=== PATIENT | female | born 1980 | race Caucasian/White ===

== ENCOUNTER 2021-12-18 22:40 | Inpatient (IN) | payer OTHER ==
[2021-12-18 22:49] VITALS: BMI 22.8
[2021-12-19] MEDS ORDERED: cloNIDine HCL 0.1 MG TABLET PO ONE ×2 (01:22→01:23)
[2021-12-19] MEDS ORDERED: methaDONE HCL 10 MG TABLET (FOR DETOX USE ONLY) PO ONE (01:26)
[2021-12-19] MEDS ORDERED: cloNIDine HCL 0.1 MG TABLET ONE ×2 (01:42→02:05)
[2021-12-19] MEDS ORDERED: methaDONE HCL 10 MG TABLET ONE ×2 (01:42→09:11)
[2021-12-19] MEDS ORDERED: VANCOMYCIN/WATER 2 GM/400 ML PREMIX BAG IVPB ONE (02:01)
[2021-12-19] MEDS ORDERED: VANCOMYCIN/WATER 1,250 MG/250 ML BAG IVPB ONE (02:17)
[2021-12-19] MEDS ORDERED: VANCOMYCIN/WATER 1250 MG 1,250 MG/250 ML BAG IVPB ONE (03:16)
[2021-12-19 05:41] LABS: BASO % 0.3 % (0-2.0); EOS % 0.2 % (0-4.5); HEMATOCRIT 25.3 % (32.4-45.2); HEMOGLOBIN 7.6 GM/dL (10.7-15.3); LYMPH % 7.6 % (8-40); MCHC 30.1 g/dl (32.0-36.0); MEAN CELL VOLUME 61.7 fl (80-96); MEAN PLT VOLUME 9.1 fl (7.5-11.1); MONO % 5.8 % (3.8-10.2); NEUT % 86.1 % (42.8-82.8); PLATELET COUNT 242 10^3/uL (134-434); RDW 18.4 % (11.6-15.6)
[2021-12-19 05:48] LABS: MCH 18.6 pg (25.7-33.7)
[2021-12-19 06:01] LABS: CHLORIDE 101 mmol/L (98-107); SODIUM 134 mmol/L (136-145)
[2021-12-19 06:04] LABS: ALBUMIN 2.7 g/dl (3.4-5.0); ANION GAP 5 MMOL/L (8-16); CALCIUM 8.2 mg/dL (8.5-10.1); CO2 29 mmol/L (21-32); GLUCOSE,RANDOM 127 mg/dL (74-106)
[2021-12-19 06:07] LABS: CREATININE 0.8 mg/dL (0.55-1.3); SGOT/AST 10 U/L (15-37); SGPT/ALT 10 U/L (13-61)
[2021-12-19 06:09] LABS: BILIRUBIN,TOTAL 0.6 mg/dL (0.2-1)
[2021-12-19 06:10] LABS: ALK PHOS 93 U/L (45-117)
[2021-12-19] MEDS ORDERED: LORazepam 2 MG/ML SDV VIAL IVPUSH PRN (07:41)
[2021-12-19] MEDS ORDERED: cloNIDine HCL 0.1 MG TABLET PO PRN (07:44)
[2021-12-19 07:54] LABS: ERYTHROCYTE SEDIMENTATION RATE 62 mm/hr (0-20)
[2021-12-19] MEDS ORDERED: SODIUM CHLORIDE 1,000 ML IV SCH (08:00)
[2021-12-19] MEDS ORDERED: THIAMINE HCL 100 MG TABLET (FP) ONE (09:11)
[2021-12-19] MEDS ORDERED: FOLIC ACID 1 MG TABLET (FP) ONE (09:11)
[2021-12-19] MEDS ORDERED: ENOXAPARIN NA (PORCINE) 40 MG/0.4 ML DISP.SYRIN SQ ONE (09:11)
[2021-12-19] MEDS: FOLIC ACID 1 MG TABLET (FP) PO SCH (09:22)
[2021-12-19] MEDS ORDERED: LORazepam 1 MG TABLET PO PRN (09:26)
[2021-12-19] MEDS ORDERED: THIAMINE HCL 100 MG TABLET (FP) PO SCH (10:00)
[2021-12-19] MEDS ORDERED: ENOXAPARIN NA (PORCINE) 40 MG/0.4 ML DISP.SYRIN SQ SCH (10:00)
[2021-12-19] MEDS ORDERED: PIPERACILLIN/TAZOB 3.375 GM 3.375 GM in DEXTROSE 5%-WATER - 50 ML IVPB SCH (10:45)
[2021-12-19] MEDS ORDERED: PIPERACILLIN/TAZOBACTAM 3.375 GM VIAL IVPB ONE (11:03)
[2021-12-19] MEDS ORDERED: DEXTROSE 5%-WATER - 50 ML IVPB ONE (11:04)
[2021-12-19] MEDS: LORazepam 1 MG TABLET PO SCH ×3 (12:13→23:00)
[2021-12-19 12:31] LABS: ANISOCYTOSIS 3+; OVALOCYTE 1+
[2021-12-19 13:08] LABS: PH,URINE 6.5 (5.0-8.0); URINE APPEARANCE CLEAR; URINE BILIRUBIN NEGATIVE (NEGATIVE); URINE COLOR YELLOW; URINE GLUCOSE (UA) NEGATIVE (NEGATIVE); URINE KETONE NEGATIVE (NEGATIVE); URINE LEUK ESTERASE NEGATIVE (NEGATIVE); URINE NITRITE NEGATIVE (NEGATIVE); URINE PROTEIN NEGATIVE (NEGATIVE)
[2021-12-19] MEDS: VANCOMYCIN/WATER FOR INJ (PEG) 1,000 MG/200 ML BAG IVPB SCH (16:39)
[2021-12-20] MEDS ORDERED: VANCOMYCIN 1 GM/200 ML PREMIX BAG IVPB ONE (02:00)
[2021-12-20] MEDS: VANCOMYCIN/WATER FOR INJ (PEG) 1,000 MG/200 ML BAG IVPB SCH ×2 (02:55→16:44)
[2021-12-20] MEDS: LORazepam 1 MG TABLET PO SCH ×4 (06:14→23:23)
[2021-12-20] MEDS ORDERED: THIAMINE HCL 200 MG/2 ML VIAL IVPB ONE (07:55)
[2021-12-20] MEDS ORDERED: VANCOMYCIN 1 GM in D5W (PRE-DOCKED) 1,000 MG/250 ML IVPB SCH (10:00)
[2021-12-20] MEDS ORDERED: PIPERACILLIN/TAZOB 3.375 GM 3.375 GM in DEXTROSE 5%-WATER - 50 ML IVPB SCH (10:00)
[2021-12-20] MEDS ORDERED: DEXTROSE 5%-WATER 100 ML IVPB ONE (10:34)
[2021-12-20] MEDS: FOLIC ACID 1 MG TABLET (FP) PO SCH (10:40)
[2021-12-20] MEDS: CEFTRIAXONE 2 GM in DEXTROSE 5%-WATER 2 GM/100 ML BAG IVPB SCH (10:40)
[2021-12-20] MEDS ORDERED: methaDONE HCL 10 MG TABLET ONE (10:41)
[2021-12-21] MEDS: VANCOMYCIN/WATER FOR INJ (PEG) 1,000 MG/200 ML BAG IVPB SCH ×2 (02:36→14:06)
[2021-12-21] MEDS: LORazepam 1 MG TABLET PO SCH ×3 (05:55→17:17)
[2021-12-21] MEDS ORDERED: DEXTROSE 5%-WATER 100 ML IVPB ONE (09:13)
[2021-12-21] MEDS: FOLIC ACID 1 MG TABLET (FP) PO SCH (09:31)
[2021-12-21] MEDS: CEFTRIAXONE 2 GM in DEXTROSE 5%-WATER 2 GM/100 ML BAG IVPB SCH (09:31)
[2021-12-21] MEDS ORDERED: THIAMINE HCL 100 MG TABLET (FP) PO SCH (10:00)
[2021-12-21] MEDS ORDERED: methaDONE HCL 10 MG TABLET PO ONE (10:00)
[2021-12-21 13:57] VITALS: BP 100/62; PULSE 88; TEMP 98.5
[2021-12-22] MEDS ORDERED: LORazepam 0.5 MG TABLET PO PRN
[2021-12-22] MEDS ORDERED: LORazepam 0.5 MG TABLET PO SCH (05:00)
[2021-12-23] MEDS ORDERED: LORazepam 0.5 MG TABLET PO ONE (05:00)
[2021-12-23] MEDS ORDERED: methaDONE HCL 10 MG TABLET PO ONE (10:00)
[2021-12-25 00:37] LABS: SYPHILIS W/ RPR CONF NON-REACTIVE (NONREACTIVE)
[2021-12-25 01:06] LABS: HIV INTERPRETATION NEGATIVE (NEGATIVE)
== END 2021-12-21 18:17 | disposition left against medical advice (07) | DRG 383 ==
LOC: JER 22:40 → JERBED 12-19 06:25 → J7W 12-19 09:58
PROVIDERS: ADMIT Hospitalist; ATTEND Internal Medicine
DX: L03.116 Cellulitis of left lower limb (principal); L03.115 Cellulitis of right lower limb; F11.23 Opioid dependence with withdrawal; D50.9 Iron deficiency anemia, unspecified; F10.239 Alcohol dependence with withdrawal, unspecified; L02.419 Cutaneous abscess of limb, unspecified
CPT/HCPCS: 0241U-QW; 36415; 73701-TC-RT; 80053; 81003; 84702; 85025; 85651; 86140; 86780; 86803; 86850; 86900; 86901; 87040; 87070; 87186; 87205; 87389; 87522; 93306-TC; 93970-TC; 99285-25; J0735; Q9967

== ENCOUNTER 2022-01-04 21:07 | Inpatient (IN) | payer OTHER ==
[2022-01-04] MEDS ORDERED: VANCOMYCIN 1 GM in D5W (PRE-DOCKED) 1,000 MG/250 ML IVPB ONE (23:24)
[2022-01-04] MEDS ORDERED: PIPERACILLIN/TAZOB 4.5 GM 4.5 GM in DEXTROSE 5%-WATER 100 ML IVPB ONE (23:44)
[2022-01-04] MEDS ORDERED: PIPERACILLIN/TAZOB 4.5 GM 4.5 GM/100 ML BAG IVPB ONE (23:45)
[2022-01-04 23:55] LABS: BASO % 0.4 % (0-2.0); EOS % 1.1 % (0-4.5); HEMATOCRIT 26.7 % (32.4-45.2); HEMOGLOBIN 8.3 GM/dL (10.7-15.3); LYMPH % 17.2 % (8-40); MCHC 31.2 g/dl (32.0-36.0); MEAN CELL VOLUME 61.2 fl (80-96); MEAN PLT VOLUME 8.4 fl (7.5-11.1); MONO % 8.4 % (3.8-10.2); NEUT % 72.9 % (42.8-82.8); PLATELET COUNT 261 10^3/uL (134-434); RBC 4.37 M/mm3 (3.60-5.2); RDW 18.8 % (11.6-15.6); WHITE BLOOD COUNT 7.3 K/mm3 (4.0-10.0)
[2022-01-04 23:56] LABS: MCH 19.1 pg (25.7-33.7)
[2022-01-05 00:02] LABS: INR 1.29 (0.83-1.09); PROTHROMBIN TIME (PATIENT) 14.9 SEC (9.7-13.0)
[2022-01-05 00:05] LABS: ACTIVATED PTT 32.4 SECONDS (25.2-36.5)
[2022-01-05 00:22] LABS: CALCIUM 8.6 mg/dL (8.5-10.1)
[2022-01-05 00:23] LABS: ALBUMIN 3.1 g/dl (3.4-5.0)
[2022-01-05 00:26] LABS: CREATININE 0.7 mg/dL (0.55-1.3)
[2022-01-05 00:27] LABS: BILIRUBIN,TOTAL 0.6 mg/dL (0.2-1)
[2022-01-05 00:28] LABS: TOT PROT 8.7 g/dl (6.4-8.2)
[2022-01-05] MEDS ORDERED: VANCOMYCIN 1 GRAM (PRE-DOCKED) 1,000 MG/250 ML BAG IVPB ONE ×2 (00:41→09:49)
[2022-01-05] MEDS: SODIUM CHLORIDE 1,000 ML IV SCH (03:10)
[2022-01-05 03:22] LABS: ANISOCYTOSIS 3+; MACROCYTOSIS 1+; OVALOCYTE 1+; ROULEAU 1+
[2022-01-05] MEDS ORDERED: PIPERACILLIN/TAZOB 3.375 GM 3.375 GM in DEXTROSE 5%-WATER - 50 ML IVPB SCH ×2 (04:30→07:00)
[2022-01-05] MEDS ORDERED: FOLIC ACID INJECTION - 1 MG, THIAMINE HCL 100 MG, MULTIVIT INJECTION ADULT 10 ML in SOD... IVPB ONE (04:30)
[2022-01-05] MEDS ORDERED: LORazepam 1 MG TABLET ONE ×2 (07:46→11:59)
[2022-01-05] MEDS: LORazepam 1 MG TABLET PO PRN (07:54)
[2022-01-05] MEDS ORDERED: methaDONE HCL 10 MG TABLET ONE (08:10)
[2022-01-05] MEDS ORDERED: THIAMINE HCL 200 MG/2 ML VIAL ONE (09:48)
[2022-01-05] MEDS: THIAMINE HCL 200 MG/2 ML VIAL IVPB SCH (09:55)
[2022-01-05] MEDS ORDERED: VANCOMYCIN/WATER FOR INJ (PEG) 1,000 MG/200 ML BAG IVPB SCH (10:00)
[2022-01-05] MEDS: LORazepam 1 MG TABLET PO SCH ×3 (11:00→22:35)
[2022-01-05] MEDS ORDERED: PIPERACILLIN/TAZOB 3.375 GM 3.375 GM/50 ML BAG IVPB ONE (14:24)
[2022-01-05] MEDS: PIPERACILLIN/TAZOB 3.375 GM 3.375 GM in DEXTROSE 5%-WATER - 50 ML IVPB SCH ×2 (14:50→17:25)
[2022-01-05] MEDS ORDERED: PIPERACILLIN/TAZOBACTAM 3.375 GM VIAL IVPB ONE (17:07)
[2022-01-05] MEDS ORDERED: DEXTROSE 5%-WATER - 50 ML IVPB ONE (17:07)
[2022-01-05 18:05] VITALS: BMI 24.0
[2022-01-05] MEDS: VANCOMYCIN/WATER FOR INJ (PEG) 1,000 MG/200 ML BAG IVPB SCH (22:35)
[2022-01-06] MEDS ORDERED: DEXTROSE 5%-WATER - 50 ML IVPB ONE ×3 (01:28→16:58)
[2022-01-06] MEDS ORDERED: PIPERACILLIN/TAZOBACTAM 3.375 GM VIAL IVPB ONE ×3 (01:28→16:58)
[2022-01-06] MEDS: PIPERACILLIN/TAZOB 3.375 GM 3.375 GM in DEXTROSE 5%-WATER - 50 ML IVPB SCH ×3 (01:59→17:07)
[2022-01-06] MEDS: SODIUM CHLORIDE 1,000 ML IV SCH (02:00)
[2022-01-06] MEDS: LORazepam 1 MG TABLET PO SCH ×4 (05:09→22:03)
[2022-01-06] MEDS: FOLIC ACID 1 MG TABLET (FP) PO SCH (09:10)
[2022-01-06] MEDS: THIAMINE HCL 200 MG/2 ML VIAL IVPB SCH (09:13)
[2022-01-06] MEDS ORDERED: methaDONE HCL 10 MG TABLET PO ONE (10:00)
[2022-01-06] MEDS ORDERED: VANCOMYCIN 1 GM in D5W (PRE-DOCKED) 1,000 MG/250 ML IVPB SCH (10:00)
[2022-01-06] MEDS: VANCOMYCIN/WATER FOR INJ (PEG) 1,000 MG/200 ML BAG IVPB SCH ×2 (10:21→21:58)
[2022-01-06] MEDS ORDERED: INSULIN (NOVOLOG) ASPART 100 UNITS/ML 10ML VIAL ONE (19:02)
[2022-01-06] MEDS ORDERED: INSULIN (LEVEMIR) 100 UNITS/ML UNITS SQ ONE (19:03)
[2022-01-06] MEDS: LORazepam 1 MG TABLET PO PRN (20:47)
[2022-01-06 20:59] LABS: EPI CELLS >36 /uL (0-25.1); HYALINE CASTS 1 /uL (0-3.1); PH,URINE 7.5 (5.0-8.0); URINE APPEARANCE CLEAR; URINE BACTERIA 85 /uL (0-1359); URINE BILIRUBIN NEGATIVE (NEGATIVE); URINE COLOR YELLOW; URINE GLUCOSE (UA) NEGATIVE (NEGATIVE); URINE KETONE NEGATIVE (NEGATIVE); URINE LEUK ESTERASE TRACE (NEGATIVE); URINE NITRITE NEGATIVE (NEGATIVE); URINE PROTEIN NEGATIVE (NEGATIVE); URINE RBC 3 /uL (0-23.9); URINE WBC 129 /uL (0-25.8)
[2022-01-06 21:07] LABS: METHADONE, UR NEGATIVE (NEGATIVE); PHENCYCLIDINE,URINE NEGATIVE (NEGATIVE); URINE AMPHETAMINES NEGATIVE (NEGATIVE); URINE BENZODIAZEPINES NEGATIVE (NEGATIVE)
[2022-01-06 21:08] LABS: URINE BARBITURATES NEGATIVE (NEGATIVE)
[2022-01-06 21:37] LABS: COCAINE, UR POSITIVE (NEGATIVE); OPIATES, URI POSITIVE (NEGATIVE)
[2022-01-06 22:21] LABS: YEAST FEW (NEGATIVE)
[2022-01-06 22:29] VITALS: PULSE 75
[2022-01-07] MEDS ORDERED: PIPERACILLIN/TAZOBACTAM 3.375 GM VIAL IVPB ONE ×2 (00:33→09:28)
[2022-01-07] MEDS ORDERED: DEXTROSE 5%-WATER - 50 ML IVPB ONE ×2 (00:33→09:28)
[2022-01-07] MEDS: LORazepam 1 MG TABLET PO PRN (00:35)
[2022-01-07] MEDS ORDERED: MELATONIN 5 MG TABLETS PO ONE (01:01)
[2022-01-07] MEDS ORDERED: MELATONIN 5 MG TABLETS ONE (01:04)
[2022-01-07] MEDS: SODIUM CHLORIDE 1,000 ML IV SCH (01:11)
[2022-01-07] MEDS: PIPERACILLIN/TAZOB 3.375 GM 3.375 GM in DEXTROSE 5%-WATER - 50 ML IVPB SCH ×2 (01:11→09:44)
[2022-01-07] MEDS: LORazepam 1 MG TABLET PO SCH ×2 (05:56→11:49)
[2022-01-07 07:23] VITALS: BP 125/80; TEMP 97.7
[2022-01-07] MEDS ORDERED: methaDONE HCL 10 MG TABLET ONE (09:32)
[2022-01-07] MEDS: FOLIC ACID 1 MG TABLET (FP) PO SCH (09:42)
[2022-01-07] MEDS: THIAMINE HCL 200 MG/2 ML VIAL IVPB SCH (09:42)
[2022-01-07] MEDS ORDERED: methaDONE HCL 10 MG TABLET (FOR DETOX USE ONLY) PO ONE (10:00)
[2022-01-07] MEDS: VANCOMYCIN/WATER FOR INJ (PEG) 1,000 MG/200 ML BAG IVPB SCH (10:22)
[2022-01-08] MEDS ORDERED: LORazepam 0.5 MG TABLET PO PRN
[2022-01-08] MEDS ORDERED: LORazepam 0.5 MG TABLET PO SCH (05:00)
[2022-01-08] MEDS ORDERED: methaDONE HCL 10 MG TABLET PO ONE (10:00)
[2022-01-09] MEDS ORDERED: LORazepam 0.5 MG TABLET PO ONE (05:00)
[2022-01-09] MEDS ORDERED: methaDONE HCL 10 MG TABLET (FOR DETOX USE ONLY) PO ONE (10:00)
== END 2022-01-07 12:53 | disposition left against medical advice (07) | DRG 383 ==
LOC: JER 21:07 → JERBED 01-05 01:12 → J8W 01-05 16:52
PROVIDERS: ADMIT Internal Medicine; ATTEND Internal Medicine
DX: L03.116 Cellulitis of left lower limb (principal); L03.115 Cellulitis of right lower limb; F11.23 Opioid dependence with withdrawal; D50.9 Iron deficiency anemia, unspecified; B19.20 Unspecified viral hepatitis C without hepatic coma; F41.9 Anxiety disorder, unspecified; L97.828 Non-pressure chronic ulcer of other part of left lower leg with other specified severity; L97.818 Non-pressure chronic ulcer of other part of right lower leg with other specified severity; N91.2 Amenorrhea, unspecified; B95.62 Methicillin resistant Staphylococcus aureus infection as the cause of diseases classified elsewhere
CPT/HCPCS: 0241U-QW; 36415; 71045-TC-FY; 73590-TC-LT-FY; 73590-TC-RT-FY; 73630-TC-RT-FY; 80053; 80307; 81003; 84703; 85025; 85610; 85730; 87040; 87070; 87077; 87186; 87205; 93005; 93010; 93971-TC; 99285-25

== ENCOUNTER 2022-01-18 21:41 | Emergency (ER) | payer OTHER ==
[2022-01-18 21:58] VITALS: BP 125/82; PULSE 82; TEMP 98.6; BMI 23.1
[2022-01-19] MEDS ORDERED: VANCOMYCIN 1 GM in D5W (PRE-DOCKED) 1,000 MG/250 ML IVPB ONE (01:41)
[2022-01-19] MEDS ORDERED: PIPERACILLIN/TAZOB 4.5 GM 4.5 GM in DEXTROSE 5%-WATER 100 ML IVPB ONE (01:41)
[2022-01-19] MEDS ORDERED: PIPERACILLIN/TAZOB 4.5 GM 4.5 GM/100 ML BAG IVPB ONE (02:17)
[2022-01-19] MEDS ORDERED: methaDONE HCL 10 MG TABLET ONE (04:17)
[2022-01-19] MEDS ORDERED: methaDONE HCL 10 MG TABLET (FOR DETOX USE ONLY) PO ONE (04:38)
[2022-01-19] MEDS ORDERED: AMOX TR/POT CLAV 875MG/125MG TABLETS (FP) PO ONE (05:01)
[2022-01-19] MEDS ORDERED: AMOX TR/POT CLAV 875MG/125MG TABLETS (FP) ONE (05:18)
== END 2022-01-19 06:16 | disposition home or self-care (01) ==
LOC: JER 21:41
DX: L08.9 Local infection of the skin and subcutaneous tissue, unspecified (principal)
CPT/HCPCS: 99284-25

== ENCOUNTER 2022-01-19 06:42 | Inpatient (IN) | payer OTHER ==
[2022-01-19 09:28] VITALS: BMI 23.1
[2022-01-19] MEDS ORDERED: cloNIDine HCL 0.1 MG TABLET PO PRN (10:19)
[2022-01-19] MEDS ORDERED: methaDONE HCL 10 MG TABLET (FOR DETOX USE ONLY) PO ONE ×2 (10:19→10:39)
[2022-01-19] MEDS ORDERED: NICOTINE 10 MG CARTRIDGE (INHALER) IH PRN (10:19)
[2022-01-19] MEDS ORDERED: IBUPROFEN 600 MG TABLET (FP) PO PRN (10:19)
[2022-01-19] MEDS ORDERED: MAGNESIUM CITRATE 300 ML BOTTLE PO PRN (10:19)
[2022-01-19] MEDS ORDERED: DICYCLOMINE HCL 10 MG CAPSULE PO PRN (10:19)
[2022-01-19] MEDS ORDERED: MAG HYDROX/AL HYDROX/SIMETH 30 ML UNIT-DOSE CUP PO PRN (10:19)
[2022-01-19] MEDS ORDERED: BISMUTH SUBSALICYLATE 262 MG/15 ML BTL PO PRN (10:19)
[2022-01-19] MEDS ORDERED: ONDANSETRON *ODT* 4 MG TABLET SL PRN (10:19)
[2022-01-19] MEDS ORDERED: LOPERAMIDE HCL 2 MG CAPSULE PO PRN (10:19)
[2022-01-19] MEDS ORDERED: MAGNESIUM HYDROX 2400MG/30ML ORAL SUSPENSION 30 ML CUP PO PRN (10:19)
[2022-01-19] MEDS ORDERED: BENZOCAINE/MENTHOL (CHLORASEPTIC ) LOZENGE MM PRN (10:19)
[2022-01-19] MEDS ORDERED: IBUPROFEN 400 MG TABLET (FP) PO PRN (10:19)
[2022-01-19] MEDS ORDERED: ACETAMINOPHEN 325 MG TABLET (FP) PO PRN ×2 (10:19)
[2022-01-19] MEDS ORDERED: AMOX TR/POT CLAV 875MG/125MG TABLETS (FP) PO SCH (10:30)
[2022-01-19] MEDS: diazePAM 5 MG TABLET PO SCH ×3 (11:19→22:20)
[2022-01-19] MEDS: METHOCARBAMOL 500 MG TABLET PO PRN (11:20)
[2022-01-19] MEDS: CLINDAMYCIN PHOSPHATE 1% TOPICAL GEL 30 GM TUBE TP SCH ×2 (13:19→22:21)
[2022-01-19] MEDS: hydrOXYzine PAMOATE 25 MG CAPSULE (FP) PO SCH ×3 (14:31→22:19)
[2022-01-19] MEDS: AMOX TR/POT CLAV 875MG/125MG TABLETS (FP) PO SCH (17:44)
[2022-01-19] MEDS: THIAMINE HCL 100 MG TABLET (FP) PO SCH (22:19)
[2022-01-19] MEDS: MELATONIN 5 MG TABLETS PO SCH (22:19)
[2022-01-20] MEDS: hydrOXYzine PAMOATE 25 MG CAPSULE (FP) PO SCH ×5 (06:21→22:36)
[2022-01-20] MEDS: diazePAM 5 MG TABLET PO SCH ×4 (06:21→22:34)
[2022-01-20] MEDS ORDERED: methaDONE HCL 10 MG TABLET (FOR DETOX USE ONLY) ONE (09:11)
[2022-01-20] MEDS: AMOX TR/POT CLAV 875MG/125MG TABLETS (FP) PO SCH ×2 (10:07→17:07)
[2022-01-20] MEDS: PRENATAL VITAMINS W/ FOLIC ACID TABLET (FP) PO SCH (10:08)
[2022-01-20] MEDS: CLINDAMYCIN PHOSPHATE 1% TOPICAL GEL 30 GM TUBE TP SCH ×2 (11:28→22:34)
[2022-01-20] MEDS: THIAMINE HCL 100 MG TABLET (FP) PO SCH (22:35)
[2022-01-20] MEDS: MELATONIN 5 MG TABLETS PO SCH (22:35)
[2022-01-21] MEDS: diazePAM 5 MG TABLET PO PRN ×3 (00:56→18:23)
[2022-01-21] MEDS: hydrOXYzine PAMOATE 25 MG CAPSULE (FP) PO SCH ×4 (05:58→18:18)
[2022-01-21] MEDS: diazePAM 5 MG TABLET PO SCH ×2 (05:58→14:29)
[2022-01-21] MEDS: AMOX TR/POT CLAV 875MG/125MG TABLETS (FP) PO SCH (08:08)
[2022-01-21] MEDS ORDERED: methaDONE HCL 10 MG TABLET (FOR DETOX USE ONLY) PO ONE (10:00)
[2022-01-21] MEDS: METHOCARBAMOL 500 MG TABLET PO PRN ×2 (10:21→18:18)
[2022-01-21] MEDS: PRENATAL VITAMINS W/ FOLIC ACID TABLET (FP) PO SCH (10:21)
[2022-01-21] MEDS: CLINDAMYCIN PHOSPHATE 1% TOPICAL GEL 30 GM TUBE TP SCH (10:23)
[2022-01-21 17:02] VITALS: BP 101/64; PULSE 85; TEMP 98.6
[2022-01-21] MEDS ORDERED: FAMOTIDINE 20 MG TABLET PO SCH (22:00)
[2022-01-22] MEDS ORDERED: diazePAM 5 MG TABLET PO SCH (06:00)
[2022-01-23] MEDS ORDERED: diazePAM 5 MG TABLET PO ONE (06:00)
[2022-01-23] MEDS ORDERED: methaDONE HCL 10 MG TABLET (FOR DETOX USE ONLY) PO ONE (10:00)
== END 2022-01-21 21:03 | disposition left against medical advice (07) | DRG 770 ==
LOC: YASAS 06:42 → SUATTDRO 06:42 → Y6N 10:25
PROVIDERS: ADMIT Allergy & Immunology; ATTEND Surgery
PROC: HZ2ZZZZ Detoxification Services for Substance Abuse Treatment (ICD-10-PCS; principal; 2022-01-19)
DX: F11.23 Opioid dependence with withdrawal (principal); F10.230 Alcohol dependence with withdrawal, uncomplicated; F14.20 Cocaine dependence, uncomplicated; L03.115 Cellulitis of right lower limb; L03.116 Cellulitis of left lower limb; Z22.322 Carrier or suspected carrier of Methicillin resistant Staphylococcus aureus; Z56.0 Unemployment, unspecified; Z59.00 Homelessness unspecified
CPT/HCPCS: 81025; 87811; C9803-CS; J0735; U0003; U0005

== ENCOUNTER 2022-11-03 13:08 | Inpatient (IN) | payer OTHER ==
[2022-11-03 13:18] VITALS: BMI 25.7
[2022-11-03 15:33] LABS: BASO % 0.6 % (0-2.0); EOS % 2.5 % (0-4.5); HEMATOCRIT 31.5 % (32.4-45.2); LYMPH % 25.7 % (8-40); MCH 20.1 pg (25.7-33.7); MCHC 31.8 g/dl (32.0-36.0); MEAN CELL VOLUME 63.2 fl (80-96); MEAN PLT VOLUME 8.2 fl (7.5-11.1); NEUT % 63.2 % (42.8-82.8); PLATELET COUNT 244 10^3/uL (134-434); RBC 4.99 M/mm3 (3.60-5.2); RDW 17.1 % (11.6-15.6); WHITE BLOOD COUNT 5.1 K/mm3 (4.0-10.0)
[2022-11-03 15:50] LABS: CALCIUM 9.1 mg/dL (8.5-10.1)
[2022-11-03 15:51] LABS: ALBUMIN 3.5 g/dl (3.4-5.0); BLOOD UREA NITROGEN 8.7 mg/dL (7-18)
[2022-11-03 15:54] LABS: CREATININE 0.7 mg/dL (0.55-1.3)
[2022-11-03 15:56] LABS: BILIRUBIN,TOTAL 0.9 mg/dL (0.2-1); TOT PROT 8.7 g/dl (6.4-8.2)
[2022-11-03] MEDS ORDERED: VANCOMYCIN 1 GM in D5W (PRE-DOCKED) 1,000 MG/250 ML (RESTRICTED TO ID ONLY IVPB ONE (15:56)
[2022-11-03] MEDS ORDERED: PIPERACILLIN/TAZOB 4.5 GM 4.5 GM in DEXTROSE 5%-WATER 100 ML IVPB ONE (15:56)
[2022-11-03] MEDS ORDERED: VANCOMYCIN/WATER FOR INJ (PEG) 1,000 MG/200 ML BAG IVPB ONE (16:04)
[2022-11-03] MEDS ORDERED: PIPERACILLIN/TAZOB 4.5 GM 4.5 GM/100 ML BAG IVPB ONE (16:04)
[2022-11-03 16:19] LABS: ERYTHROCYTE SEDIMENTATION RATE 40 mm/hr (0-20)
[2022-11-03 16:22] LABS: ANISOCYTOSIS 3+; MACROCYTOSIS 0; OVALOCYTE 1+
[2022-11-03] MEDS ORDERED: methaDONE HCL 10 MG TABLET (FOR DETOX USE ONLY) PO SCH (17:45)
[2022-11-03] MEDS ORDERED: PIPERACILLIN/TAZOB 3.375 GM 3.375 GM in DEXTROSE 5%-WATER - 50 ML IVPB SCH (21:00)
[2022-11-03] MEDS: PIPERACILLIN/TAZOB 3.375 GM 3.375 GM in DEXTROSE 5%-WATER - 50 ML IVPB SCH (21:29)
[2022-11-04] MEDS: PIPERACILLIN/TAZOB 3.375 GM 3.375 GM in DEXTROSE 5%-WATER - 50 ML IVPB SCH ×2 (03:24→09:34)
[2022-11-04] MEDS ORDERED: cloNIDine HCL 0.1 MG TABLET PO PRN (08:27)
[2022-11-04] MEDS ORDERED: methaDONE HCL 10 MG TABLET PO ONE (08:27)
[2022-11-04] MEDS: ENOXAPARIN NA (PORCINE) 40 MG/0.4 ML DISP.SYRIN SQ SCH (09:42)
[2022-11-04] MEDS ORDERED: VANCOMYCIN 1 GM in D5W (PRE-DOCKED) 1,000 MG/250 ML (RESTRICTED TO ID ONLY IVPB SCH (10:00)
[2022-11-04] MEDS ORDERED: DICYCLOMINE HCL 10 MG CAPSULE PO PRN (11:57)
[2022-11-04] MEDS ORDERED: BISMUTH SUBSALICYLATE 262 MG/15 ML BTL PO PRN (11:58)
[2022-11-04] MEDS ORDERED: LOPERAMIDE HCL 2 MG CAPSULE PO PRN (11:58)
[2022-11-04] MEDS ORDERED: BISMUTH SUBSALICYLATE 524 MG/30 ML PO PRN ×2 (13:52→13:53)
[2022-11-04] MEDS ORDERED: VANCOMYCIN 1,000 MG in DEXTROSE 5%-WATER - 250 ML IVPB SCH (16:00)
[2022-11-04] MEDS: hydrOXYzine PAMOATE 25 MG CAPSULE (FP) PO PRN (16:11)
[2022-11-04] MEDS ORDERED: LORazepam 1 MG TABLET PO PRN (16:17)
[2022-11-04] MEDS ORDERED: VANCOMYCIN/WATER FOR INJ (PEG) 1,000 MG/200 ML BAG IVPB SCH (16:30)
[2022-11-04] MEDS: COLLAGENASE CLOSTRIDIUM HIST. 30 GRAMS TUBE TP SCH (16:41)
[2022-11-04] MEDS ORDERED: VANCOMYCIN 1 GM/200 ML PREMIX BAG (RESTRICTED TO ID ONLY) IVPB SCH (17:00)
[2022-11-04] MEDS: SULFAMETHOXAZOLE/TRIMETHOPRIM 800MG/160MG D.S. TABLET PO SCH (21:51)
[2022-11-04 23:02] VITALS: RESP 18
[2022-11-05] MEDS: hydrOXYzine PAMOATE 25 MG CAPSULE (FP) PO PRN (05:42)
[2022-11-05 08:40] VITALS: BP 117/69; PULSE 69; TEMP 98.6
[2022-11-05] MEDS: COLLAGENASE CLOSTRIDIUM HIST. 30 GRAMS TUBE TP SCH (10:11)
[2022-11-05] MEDS: SULFAMETHOXAZOLE/TRIMETHOPRIM 800MG/160MG D.S. TABLET PO SCH (10:11)
[2022-11-05] MEDS: ENOXAPARIN NA (PORCINE) 40 MG/0.4 ML DISP.SYRIN SQ SCH (10:27)
[2022-11-06] MEDS ORDERED: methaDONE HCL 10 MG TABLET PO ONE (10:00)
[2022-11-08] MEDS ORDERED: methaDONE HCL 10 MG TABLET PO ONE (10:00)
== END 2022-11-05 12:39 | disposition other institution (70) | DRG 383 ==
LOC: JER 13:08 → JERBED 16:44 → J7W 19:28
PROVIDERS: ADMIT Internal Medicine; ATTEND Internal Medicine
DX: L03.116 Cellulitis of left lower limb (principal); L03.115 Cellulitis of right lower limb; F10.10 Alcohol abuse, uncomplicated; F14.10 Cocaine abuse, uncomplicated; D50.9 Iron deficiency anemia, unspecified; F11.20 Opioid dependence, uncomplicated
CPT/HCPCS: 0241U-QW; 36415; 71046-TC-FY; 73590-TC-LT-FY; 73590-TC-RT-FY; 80053; 84484; 85025; 85651; 86140; 87040; 87070; 87186; 87205; 93005; 93010; 99285-25

== ENCOUNTER 2023-02-22 14:46 | Inpatient (IN) | payer OTHER ==
[2023-02-22] MEDS ORDERED: CLINDAMYCIN 600MG PREMIX IVPB 600 MG/50 ML BAG IVPB ONE ×2 (16:07→16:37)
[2023-02-22] MEDS ORDERED: diazePAM CARPU-JECT 10 MG/2 ML DISP.SYRIN IVPUSH ONE (16:12)
[2023-02-22] MEDS ORDERED: diazePAM CARPU-JECT 10 MG/2 ML DISP.SYRIN ONE (16:36)
[2023-02-22 17:41] LABS: BASO % 0.3 % (0-2.0); EOS % 0.7 % (0-4.5); HEMOGLOBIN 8.9 GM/dL (10.7-15.3); LYMPH % 25.1 % (8-40); MCHC 30.8 g/dl (32.0-36.0); MEAN PLT VOLUME 7.8 fl (7.5-11.1); MONO % 9.5 % (3.8-10.2); NEUT % 64.4 % (42.8-82.8); PLATELET COUNT 240 10^3/uL (134-434); RBC 4.67 M/mm3 (3.60-5.2)
[2023-02-22 17:51] LABS: MCH 19.1 pg (25.7-33.7)
[2023-02-22 17:56] LABS: POTASSIUM 3.3 mmol/L (3.5-5.1)
[2023-02-22 17:58] LABS: CALCIUM 8.4 mg/dL (8.5-10.1)
[2023-02-22 17:59] LABS: BLOOD UREA NITROGEN 7.4 mg/dL (7-18)
[2023-02-22 18:01] LABS: CREATININE 0.7 mg/dL (0.55-1.3)
[2023-02-22 18:04] LABS: BILIRUBIN,TOTAL 0.4 mg/dL (0.2-1); TOT PROT 7.6 g/dl (6.4-8.2)
[2023-02-22 19:21] LABS: ANISOCYTOSIS 3+; MACROCYTOSIS 0
[2023-02-22] MEDS ORDERED: POTASSIUM CHLORIDE ORAL LIQUID 20 MEQ/15 ML PO ONE (22:11)
[2023-02-23] MEDS ORDERED: cloNIDine HCL 0.1 MG TABLET PO PRN (01:21)
[2023-02-23] MEDS ORDERED: chlordiazePOXIDE HCL 25 MG CAPSULE PO PRN (01:26)
[2023-02-23] MEDS ORDERED: chlordiazePOXIDE HCL 25 MG CAPSULE PO ONE (01:26)
[2023-02-23] MEDS ORDERED: methaDONE HCL 10 MG TABLET PO ONE (02:30)
[2023-02-23] MEDS ORDERED: PIPERACILLIN/TAZOB 3.375 GM 3.375 GM/50 ML BAG IVPB ONE ×3 (02:59→14:38)
[2023-02-23] MEDS ORDERED: POTASSIUM CHLORIDE ORAL LIQUID 20 MEQ/15 ML ONE (02:59)
[2023-02-23] MEDS ORDERED: VANCOMYCIN/WATER FOR INJ (PEG) 1,000 MG/200 ML BAG IVPB ONE ×2 (02:59→14:38)
[2023-02-23] MEDS ORDERED: chlordiazePOXIDE HCL 25 MG CAPSULE ONE ×4 (02:59→17:47)
[2023-02-23] MEDS ORDERED: POTASSIUM CHLORIDE TABS 20 MEQ TABLET.ER (FP) PO ONE (03:07)
[2023-02-23] MEDS ORDERED: SODIUM CHLORIDE 1,000 ML IV SCH (03:15)
[2023-02-23] MEDS: PIPERACILLIN/TAZOB 3.375 GM 3.375 GM in DEXTROSE 5%-WATER - 50 ML IVPB SCH ×4 (03:30→22:35)
[2023-02-23] MEDS: VANCOMYCIN/WATER FOR INJ (PEG) 1,000 MG/200 ML BAG IVPB SCH ×2 (03:30→15:45)
[2023-02-23] MEDS ORDERED: ENOXAPARIN NA (PORCINE) 40 MG/0.4 ML DISP.SYRIN SQ ONE ×2 (04:12→08:59)
[2023-02-23] MEDS: chlordiazePOXIDE HCL 25 MG CAPSULE PO SCH ×4 (05:18→23:19)
[2023-02-23] MEDS: SODIUM CHLORIDE 1,000 ML IV SCH ×2 (05:18→16:00)
[2023-02-23] MEDS ORDERED: methaDONE HCL 10 MG TABLET ONE (08:58)
[2023-02-23] MEDS: ENOXAPARIN NA (PORCINE) 40 MG/0.4 ML DISP.SYRIN SQ SCH (09:17)
[2023-02-23 23:53] VITALS: BMI 26.0
[2023-02-24] MEDS: PIPERACILLIN/TAZOB 3.375 GM 3.375 GM in DEXTROSE 5%-WATER - 50 ML IVPB SCH ×4 (02:18→22:06)
[2023-02-24] MEDS: VANCOMYCIN/WATER FOR INJ (PEG) 1,000 MG/200 ML BAG IVPB SCH ×2 (02:57→13:31)
[2023-02-24] MEDS: chlordiazePOXIDE HCL 25 MG CAPSULE PO SCH ×4 (05:54→22:06)
[2023-02-24] MEDS: SODIUM CHLORIDE 1,000 ML IV SCH (07:34)
[2023-02-24] MEDS: ENOXAPARIN NA (PORCINE) 40 MG/0.4 ML DISP.SYRIN SQ SCH (09:13)
[2023-02-24 17:31] VITALS: RESP 18
[2023-02-24 22:51] VITALS: BP 125/77; PULSE 77; TEMP 98.1
[2023-02-25] MEDS ORDERED: chlordiazePOXIDE HCL 10 MG CAPSULE PO PRN
[2023-02-25] MEDS ORDERED: chlordiazePOXIDE HCL 10 MG CAPSULE PO SCH (05:00)
[2023-02-25] MEDS ORDERED: methaDONE HCL 10 MG TABLET PO ONE (10:00)
[2023-02-25] MEDS ORDERED: COLLAGENASE CLOSTRIDIUM HIST. 30 GRAMS TUBE TP SCH (10:00)
[2023-02-26] MEDS ORDERED: chlordiazePOXIDE HCL 10 MG CAPSULE PO SCH (05:00)
[2023-02-27] MEDS ORDERED: chlordiazePOXIDE HCL 10 MG CAPSULE PO ONE (05:00)
[2023-02-27] MEDS ORDERED: methaDONE HCL 10 MG TABLET PO ONE (10:00)
== END 2023-02-25 01:26 | disposition left against medical advice (07) | DRG 383 ==
LOC: JER 14:46 → JERBED 19:53 → J7W 02-23 21:02
PROVIDERS: ADMIT Internal Medicine; ATTEND Internal Medicine
DX: L03.116 Cellulitis of left lower limb (principal); L03.115 Cellulitis of right lower limb; L97.828 Non-pressure chronic ulcer of other part of left lower leg with other specified severity; L97.818 Non-pressure chronic ulcer of other part of right lower leg with other specified severity; F11.20 Opioid dependence, uncomplicated; F10.20 Alcohol dependence, uncomplicated; F19.90 Other psychoactive substance use, unspecified, uncomplicated; D64.9 Anemia, unspecified; R00.2 Palpitations; E87.6 Hypokalemia
CPT/HCPCS: 36415; 73560-TC-LT-FY; 73590-TC-LT-FY; 73590-TC-RT-FY; 73701-TC-RT; 76882-TC-RT-FY; 80053; 84703; 85025; 87040; 87070; 87077; 87186; 87205; 93005; 93010; 99285-25; Q9967

== ENCOUNTER 2023-03-30 22:28 | Inpatient (IN) | payer OTHER ==
[2023-03-30 22:38] VITALS: BMI 24.0
[2023-03-31] MEDS ORDERED: VANCOMYCIN 1,000 MG in DEXTROSE 5%-WATER - 250 ML IVPB ONE (00:21)
[2023-03-31] MEDS ORDERED: PIPERACILLIN/TAZOB 3.375 GM 3.375 GM in DEXTROSE 5%-WATER - 50 ML IVPB ONE (00:21)
[2023-03-31] MEDS ORDERED: chlordiazePOXIDE HCL 25 MG CAPSULE PO ONE (00:23)
[2023-03-31] MEDS ORDERED: chlordiazePOXIDE HCL 25 MG CAPSULE ONE ×6 (01:13→23:00)
[2023-03-31] MEDS ORDERED: PIPERACILLIN/TAZOB 3.375 GM 3.375 GM/50 ML BAG IVPB ONE ×4 (02:10→20:56)
[2023-03-31] MEDS ORDERED: VANCOMYCIN 1 GRAM (PRE-DOCKED) 1,000 MG/250 ML BAG IVPB ONE ×2 (02:11→14:29)
[2023-03-31 02:20] LABS: BASO % 0.4 % (0-2.0); EOS % 1.9 % (0-4.5); HEMATOCRIT 30.3 % (32.4-45.2); HEMOGLOBIN 9.2 GM/dL (10.7-15.3); LYMPH % 17.8 % (8-40); MCH 18.9 pg (25.7-33.7); MCHC 30.5 g/dl (32.0-36.0); MEAN CELL VOLUME 62.1 fl (80-96); MEAN PLT VOLUME 7.7 fl (7.5-11.1); MONO % 6.4 % (3.8-10.2); NEUT % 73.5 % (42.8-82.8); PLATELET COUNT 278 10^3/uL (134-434); RBC 4.88 M/mm3 (3.60-5.2); RDW 16.8 % (11.6-15.6); WHITE BLOOD COUNT 5.7 K/mm3 (4.0-10.0)
[2023-03-31 02:52] LABS: POTASSIUM 3.5 mmol/L (3.5-5.1)
[2023-03-31 02:55] LABS: ALBUMIN 3.1 g/dl (3.4-5.0); CALCIUM 8.5 mg/dL (8.5-10.1)
[2023-03-31 02:58] LABS: CREATININE 0.7 mg/dL (0.55-1.3)
[2023-03-31 03:00] LABS: BILIRUBIN,TOTAL 0.3 mg/dL (0.2-1); TOT PROT 7.8 g/dl (6.4-8.2)
[2023-03-31 03:37] LABS: ERYTHROCYTE SEDIMENTATION RATE 39 mm/hr (0-20)
[2023-03-31] MEDS ORDERED: cloNIDine HCL 0.1 MG TABLET PO PRN (03:44)
[2023-03-31 05:27] LABS: ANISOCYTOSIS 2+; MACROCYTOSIS 0; OVALOCYTE 2+
[2023-03-31] MEDS ORDERED: methaDONE HCL 10 MG TABLET PO ONE (07:30)
[2023-03-31] MEDS ORDERED: cloNIDine HCL 0.1 MG TABLET ONE (07:44)
[2023-03-31] MEDS ORDERED: methaDONE HCL 10 MG TABLET ONE (07:44)
[2023-03-31] MEDS: chlordiazePOXIDE HCL 25 MG CAPSULE PO SCH ×4 (07:54→23:07)
[2023-03-31] MEDS: PIPERACILLIN/TAZOB 3.375 GM 3.375 GM in DEXTROSE 5%-WATER - 50 ML IVPB SCH ×4 (08:01→21:26)
[2023-03-31] MEDS: PRENATAL VITAMINS W/ FOLIC ACID TABLET (FP) PO SCH (10:44)
[2023-03-31] MEDS: ENOXAPARIN NA (PORCINE) 40 MG/0.4 ML DISP.SYRIN SQ SCH (10:44)
[2023-03-31] MEDS: VANCOMYCIN 1 GRAM (PRE-DOCKED) 1,000 MG/250 ML BAG IVPB SCH (14:35)
[2023-03-31] MEDS: chlordiazePOXIDE HCL 25 MG CAPSULE PO PRN (14:42)
[2023-03-31] MEDS ORDERED: VANCOMYCIN 1,000 MG in DEXTROSE 5%-WATER - 250 ML IVPB SCH (15:00)
[2023-03-31] MEDS ORDERED: SENNOSIDES 8.6MG TABLET (FP) PO ONE (21:16)
[2023-03-31] MEDS ORDERED: THIAMINE HCL 100 MG TABLET (FP) ONE (21:16)
[2023-03-31] MEDS: MELATONIN 5 MG TABLETS PO SCH (21:26)
[2023-03-31] MEDS: THIAMINE HCL 100 MG TABLET (FP) PO SCH (21:30)
[2023-03-31] MEDS ORDERED: SENNOSIDES 8.8 MG/5 ML SYRUP PO SCH (22:00)
[2023-03-31 22:28] LABS: URINE AMPHETAMINES NEGATIVE (NEGATIVE)
[2023-03-31 22:29] LABS: PHENCYCLIDINE,URINE NEGATIVE (NEGATIVE)
[2023-03-31 22:32] LABS: COCAINE, UR POSITIVE (NEGATIVE); METHADONE, UR POSITIVE (NEGATIVE); OPIATES, URI POSITIVE (NEGATIVE); URINE BARBITURATES NEGATIVE (NEGATIVE); URINE BENZODIAZEPINES POSITIVE (NEGATIVE)
[2023-04-01] MEDS ORDERED: VANCOMYCIN 1 GRAM (PRE-DOCKED) 1,000 MG/250 ML BAG IVPB ONE (02:24)
[2023-04-01] MEDS ORDERED: PIPERACILLIN/TAZOB 3.375 GM 3.375 GM/50 ML BAG IVPB ONE (02:25)
[2023-04-01] MEDS: PIPERACILLIN/TAZOB 3.375 GM 3.375 GM in DEXTROSE 5%-WATER - 50 ML IVPB SCH ×2 (03:11→11:16)
[2023-04-01] MEDS: VANCOMYCIN 1 GRAM (PRE-DOCKED) 1,000 MG/250 ML BAG IVPB SCH (03:27)
[2023-04-01] MEDS ORDERED: chlordiazePOXIDE HCL 25 MG CAPSULE ONE ×4 (04:49→17:44)
[2023-04-01] MEDS: chlordiazePOXIDE HCL 25 MG CAPSULE PO SCH ×4 (04:53→22:13)
[2023-04-01] MEDS ORDERED: methaDONE HCL 10 MG TABLET ONE (09:32)
[2023-04-01] MEDS: ENOXAPARIN NA (PORCINE) 40 MG/0.4 ML DISP.SYRIN SQ SCH (09:35)
[2023-04-01] MEDS: PRENATAL VITAMINS W/ FOLIC ACID TABLET (FP) PO SCH (09:36)
[2023-04-01] MEDS ORDERED: VANCOMYCIN/WATER 1250 MG 1,250 MG/250 ML BAG IVPB ONE (13:12)
[2023-04-01] MEDS: chlordiazePOXIDE HCL 25 MG CAPSULE PO PRN ×2 (13:13→18:45)
[2023-04-01] MEDS: VANCOMYCIN/WATER 1250 MG 1,250 MG/250 ML BAG IVPB SCH ×2 (13:13→22:14)
[2023-04-01] MEDS ORDERED: CEFEPIME 1 GM/100 ML BAG IVPB ONE (15:30)
[2023-04-01] MEDS: CEFEPIME 1 GM in DEXTROSE 5%-WATER 100 ML IVPB SCH ×2 (15:41→18:44)
[2023-04-01] MEDS: SENNOSIDES 8.6MG TABLET (FP) PO SCH (22:12)
[2023-04-01] MEDS: THIAMINE HCL 100 MG TABLET (FP) PO SCH (22:13)
[2023-04-01] MEDS: MELATONIN 5 MG TABLETS PO SCH (22:13)
[2023-04-02] MEDS ORDERED: chlordiazePOXIDE HCL 10 MG CAPSULE PO PRN
[2023-04-02] MEDS ORDERED: CEFEPIME HCL 1 GM VIAL (RESTRICTED TO ID) ONE (02:06)
[2023-04-02] MEDS: CEFEPIME 1 GM in DEXTROSE 5%-WATER 100 ML IVPB SCH ×2 (02:44→09:11)
[2023-04-02] MEDS: chlordiazePOXIDE HCL 10 MG CAPSULE PO SCH ×4 (06:25→23:11)
[2023-04-02] MEDS: PRENATAL VITAMINS W/ FOLIC ACID TABLET (FP) PO SCH (09:09)
[2023-04-02] MEDS: ENOXAPARIN NA (PORCINE) 40 MG/0.4 ML DISP.SYRIN SQ SCH ×2 (09:09→09:14)
[2023-04-02] MEDS ORDERED: methaDONE HCL 10 MG TABLET PO ONE (10:00)
[2023-04-02] MEDS: VANCOMYCIN/WATER 1250 MG 1,250 MG/250 ML BAG IVPB SCH ×2 (10:05→22:24)
[2023-04-02] MEDS ORDERED: LORazepam 0.5 MG TABLET PO ONE (17:25)
[2023-04-02] MEDS: THIAMINE HCL 100 MG TABLET (FP) PO SCH (22:24)
[2023-04-02] MEDS: MELATONIN 5 MG TABLETS PO SCH (22:24)
[2023-04-02] MEDS: SENNOSIDES 8.6MG TABLET (FP) PO SCH (22:24)
[2023-04-02 22:50] VITALS: RESP 20
[2023-04-03] MEDS: chlordiazePOXIDE HCL 10 MG CAPSULE PO SCH ×2 (04:57→17:36)
[2023-04-03] MEDS: ENOXAPARIN NA (PORCINE) 40 MG/0.4 ML DISP.SYRIN SQ SCH (10:40)
[2023-04-03] MEDS: PRENATAL VITAMINS W/ FOLIC ACID TABLET (FP) PO SCH (10:47)
[2023-04-03 11:39] LABS: POTASSIUM 4.3 mmol/L (3.5-5.1)
[2023-04-03 11:40] LABS: CALCIUM 9.2 mg/dL (8.5-10.1)
[2023-04-03 11:42] LABS: ALBUMIN 3.2 g/dl (3.4-5.0); BLOOD UREA NITROGEN 6.3 mg/dL (7-18)
[2023-04-03 11:44] LABS: CREATININE 0.7 mg/dL (0.55-1.3)
[2023-04-03 11:46] LABS: BILIRUBIN,TOTAL 0.3 mg/dL (0.2-1)
[2023-04-03] MEDS: VANCOMYCIN/WATER 1250 MG 1,250 MG/250 ML BAG IVPB SCH (12:47)
[2023-04-03] MEDS ORDERED: diazePAM 2 MG TABLET PO PRN (12:58)
[2023-04-03] MEDS ORDERED: DAPTOMYCIN 500 MG in SODIUM CHLORIDE 50 ML IVPB SCH (13:00)
[2023-04-03] MEDS ORDERED: diazePAM 5 MG TABLET PO ONE (18:14)
[2023-04-03 21:59] VITALS: BP 130/90; PULSE 105; TEMP 97.8
[2023-04-03] MEDS ORDERED: LORazepam 2 MG/ML SDV VIAL IVPB ONE (23:05)
[2023-04-03] MEDS ORDERED: LORazepam 1 MG TABLET PO ONE (23:08)
[2023-04-04] MEDS: SENNOSIDES 8.6MG TABLET (FP) PO SCH (00:41)
[2023-04-04] MEDS: THIAMINE HCL 100 MG TABLET (FP) PO SCH (00:41)
[2023-04-04] MEDS: MELATONIN 5 MG TABLETS PO SCH (00:41)
[2023-04-04] MEDS ORDERED: diazePAM 5 MG TABLET PO PRN (02:00)
[2023-04-04] MEDS ORDERED: chlordiazePOXIDE HCL 10 MG CAPSULE PO ONE (05:00)
[2023-04-04] MEDS ORDERED: methaDONE HCL 10 MG TABLET PO ONE (10:00)
== END 2023-04-04 | disposition left against medical advice (07) | DRG 383 ==
LOC: JER 22:28 → JERBED 03-31 00:22 → J8W 04-01 17:55
PROVIDERS: ADMIT Internal Medicine; ATTEND Nurse Practitioner Family
DX: L03.115 Cellulitis of right lower limb (principal); L97.919 Non-pressure chronic ulcer of unspecified part of right lower leg with unspecified severity; L97.929 Non-pressure chronic ulcer of unspecified part of left lower leg with unspecified severity; B95.62 Methicillin resistant Staphylococcus aureus infection as the cause of diseases classified elsewhere; F11.23 Opioid dependence with withdrawal; F19.139 Other psychoactive substance abuse with withdrawal, unspecified; L03.116 Cellulitis of left lower limb
CPT/HCPCS: 36415; 80053; 80307; 82550; 83735; 84703; 85025; 85651; 86140; 87040; 87070; 87186; 87205; 87491; 87591; 87661; 93005; 93010; 93306-TC; 99285-25; G0480; J0878

== ENCOUNTER 2023-07-17 17:06 | Emergency (ER) | payer OTHER ==
[2023-07-17 17:36] VITALS: BP 131/88; PULSE 95; RESP 18; TEMP 98.2; BMI 23.1
[2023-07-17 22:16] LABS: PH,URINE 5.5 (5.0-8.0); URINE APPEARANCE CLEAR; URINE BILIRUBIN NEGATIVE (NEGATIVE); URINE COLOR YELLOW; URINE GLUCOSE (UA) NEGATIVE (NEGATIVE); URINE KETONE NEGATIVE (NEGATIVE); URINE LEUK ESTERASE NEGATIVE (NEGATIVE); URINE NITRITE NEGATIVE (NEGATIVE); URINE PROTEIN TRACE (NEGATIVE)
[2023-07-17 22:24] LABS: METHADONE, UR NEGATIVE (NEGATIVE); PHENCYCLIDINE,URINE NEGATIVE (NEGATIVE); URINE BARBITURATES NEGATIVE (NEGATIVE); URINE BENZODIAZEPINES NEGATIVE (NEGATIVE)
[2023-07-17 22:25] LABS: URINE AMPHETAMINES NEGATIVE (NEGATIVE)
[2023-07-17 22:31] LABS: COCAINE, UR POSITIVE (NEGATIVE); OPIATES, URI POSITIVE (NEGATIVE)
[2023-07-17] MEDS ORDERED: CLINDAMYCIN HCL 150 MG CAPSULE (FP) PO ONE (22:32)
[2023-07-17] MEDS ORDERED: CLINDAMYCIN HCL 150 MG CAPSULE (FP) ONE (22:41)
[2023-07-17 23:07] LABS: BASO % 0.8 % (0-2.0); EOS % 3.4 % (0-4.5); HEMATOCRIT 31.3 % (32.4-45.2); HEMOGLOBIN 9.6 GM/dL (10.7-15.3); LYMPH % 33.4 % (8-40); MCH 19.6 pg (25.7-33.7); MCHC 30.7 g/dl (32.0-36.0); MEAN CELL VOLUME 63.9 fl (80-96); MONO % 10.4 % (3.8-10.2); PLATELET COUNT 221 10^3/uL (134-434); RDW 16.7 % (11.6-15.6); WHITE BLOOD COUNT 6.9 K/mm3 (4.0-10.0)
[2023-07-17 23:21] LABS: POTASSIUM 3.8 mmol/L (3.5-5.1)
[2023-07-17 23:23] LABS: CALCIUM 9.5 mg/dL (8.5-10.1)
[2023-07-17 23:27] LABS: CREATININE 0.7 mg/dL (0.55-1.3)
[2023-07-17 23:37] LABS: ANISOCYTOSIS 1+; MACROCYTOSIS 0; OVALOCYTE 1+; PLATELET ESTIMATE NORMAL
== END 2023-07-18 01:09 | disposition home or self-care (01) ==
LOC: JER 17:06 → JERFT 17:06
DX: M79.671 Pain in right foot (principal); R22.41 Localized swelling, mass and lump, right lower limb; R22.32 Localized swelling, mass and lump, left upper limb; R50.9 Fever, unspecified; L03.90 Cellulitis, unspecified
CPT/HCPCS: 36415; 73130-TC-LT-FY; 73630-TC-RT-FY; 80048; 80307; 81003; 85025; 87086; 93970-TC; 99285-25

== ENCOUNTER 2023-09-14 14:29 | Inpatient (IN) | payer OTHER ==
[2023-09-14] MEDS ORDERED: PIPERACILLIN/TAZOB 4.5 GM 4.5 GM/100 ML BAG IVPB ONE (18:51)
[2023-09-14 18:52] LABS: BASO % 0.8 % (0-2.0); EOS % 3.1 % (0-4.5); HEMATOCRIT 30.7 % (32.4-45.2); HEMOGLOBIN 9.2 GM/dL (10.7-15.3); LYMPH % 30.5 % (8-40); MCHC 29.9 g/dl (32.0-36.0); MEAN PLT VOLUME 7.3 fl (7.5-11.1); MONO % 10.3 % (3.8-10.2); NEUT % 55.3 % (42.8-82.8); PLATELET COUNT 293 10^3/uL (134-434); RBC 4.81 M/mm3 (3.60-5.2); RDW 17.5 % (11.6-15.6); WHITE BLOOD COUNT 6.2 K/mm3 (4.0-10.0)
[2023-09-14 18:55] LABS: MCH 19.2 pg (25.7-33.7)
[2023-09-14] MEDS: PIPERACILLIN/TAZOB 4.5 GM 4.5 GM in DEXTROSE 5%-WATER 100 ML IVPB ONE (18:57)
[2023-09-14] MEDS: LORazepam 2 MG/ML SDV VIAL IVPUSH ONE (18:57)
[2023-09-14 19:21] LABS: POTASSIUM 3.7 mmol/L (3.5-5.1)
[2023-09-14 19:23] LABS: ALBUMIN 3.4 g/dl (3.4-5.0); BLOOD UREA NITROGEN 9.2 mg/dL (7-18); CALCIUM 8.7 mg/dL (8.5-10.1)
[2023-09-14 19:26] LABS: CREATININE 0.7 mg/dL (0.55-1.3)
[2023-09-14 19:28] LABS: BILIRUBIN,TOTAL 0.3 mg/dL (0.2-1); TOT PROT 8.5 g/dl (6.4-8.2)
[2023-09-14 20:04] LABS: ANISOCYTOSIS 1+; MACROCYTOSIS 1+; OVALOCYTE 1+
[2023-09-14 20:05] LABS: PLATELET ESTIMATE ADEQUATE
[2023-09-14] MEDS ORDERED: VANCOMYCIN 1 GRAM (PRE-DOCKED) 1,000 MG/250 ML BAG IVPB ONE (20:08)
[2023-09-14] MEDS: VANCOMYCIN 1,000 MG in DEXTROSE 5%-WATER - 250 ML IVPB ONE (20:32)
[2023-09-14 20:40] LABS: SYPHILIS W/ RPR CONF NON-REACTIVE (NONREACTIVE)
[2023-09-14 21:09] LABS: HIV INTERPRETATION NEGATIVE (NEGATIVE)
[2023-09-14] MEDS ORDERED: ACETAMINOPHEN 325 MG TABLET (FP) PO PRN (22:46)
[2023-09-15] MEDS: FOLIC ACID INJECTION - 1 MG, THIAMINE HCL 100 MG, MULTIVIT INJECTION ADULT 10 ML in SOD... IVPB ONE (01:27)
[2023-09-15] MEDS: SODIUM CHLORIDE 1,000 ML IV SCH (07:38)
[2023-09-15] MEDS ORDERED: THIAMINE HCL 100 MG TABLET (FP) ONE (09:01)
[2023-09-15] MEDS ORDERED: FOLIC ACID 1 MG TABLET (FP) ONE (09:01)
[2023-09-15] MEDS ORDERED: ENOXAPARIN NA (PORCINE) 40 MG/0.4 ML DISP.SYRIN SQ ONE (09:01)
[2023-09-15] MEDS ORDERED: PIPERACILLIN/TAZOB 3.375 GM 3.375 GM/50 ML BAG IVPB ONE (09:02)
[2023-09-15] MEDS: FOLIC ACID 1 MG TABLET (FP) PO SCH (09:17)
[2023-09-15] MEDS: PIPERACILLIN/TAZOB 3.375 GM 3.375 GM in DEXTROSE 5%-WATER - 50 ML IVPB SCH ×2 (09:17→15:33)
[2023-09-15] MEDS: ENOXAPARIN NA (PORCINE) 40 MG/0.4 ML DISP.SYRIN SQ SCH (09:17)
[2023-09-15] MEDS: THIAMINE HCL 100 MG TABLET (FP) PO SCH (09:17)
[2023-09-15] MEDS ORDERED: chlordiazePOXIDE HCL 25 MG CAPSULE ONE (13:26)
[2023-09-15] MEDS ORDERED: methaDONE HCL 10 MG TABLET ONE (13:26)
[2023-09-15] MEDS: methaDONE HCL 10 MG TABLET PO ONE (13:43)
[2023-09-15] MEDS: chlordiazePOXIDE HCL 25 MG CAPSULE PO SCH (13:44)
[2023-09-15 14:07] LABS: EPI CELLS >36 /uL (0-25.1); HYALINE CASTS 7 /uL (0-3.1); URINE APPEARANCE TURBID; URINE BACTERIA 2175 /uL (0-1359); URINE BILIRUBIN NEGATIVE (NEGATIVE); URINE COLOR YELLOW; URINE GLUCOSE (UA) NEGATIVE (NEGATIVE); URINE KETONE NEGATIVE (NEGATIVE); URINE LEUK ESTERASE 3+ (NEGATIVE); URINE NITRITE NEGATIVE (NEGATIVE); URINE PROTEIN TRACE (NEGATIVE); URINE RBC 11 /uL (0-23.9); URINE WBC 1017 /uL (0-25.8)
[2023-09-15 14:08] LABS: URINE AMPHETAMINES NEGATIVE (NEGATIVE); URINE BARBITURATES NEGATIVE (NEGATIVE)
[2023-09-15 14:09] LABS: METHADONE, UR NEGATIVE (NEGATIVE); PHENCYCLIDINE,URINE NEGATIVE (NEGATIVE)
[2023-09-15 14:10] LABS: COCAINE, UR POSITIVE (NEGATIVE); OPIATES, URI POSITIVE (NEGATIVE); URINE BENZODIAZEPINES POSITIVE (NEGATIVE)
[2023-09-15] MEDS ORDERED: VANCOMYCIN 1 GRAM (PRE-DOCKED) 1,000 MG/250 ML BAG IVPB ONE (14:50)
[2023-09-15] MEDS: VANCOMYCIN 1 GRAM (PRE-DOCKED) 1,000 MG/250 ML BAG IVPB SCH (14:58)
[2023-09-15] MEDS: VANCOMYCIN 1,000 MG in DEXTROSE 5%-WATER - 250 ML IVPB SCH (15:33)
[2023-09-15 15:49] VITALS: BMI 21.1
[2023-09-15] MEDS: CEFEPIME 1 GM in DEXTROSE 5%-WATER 100 ML IVPB SCH (17:29)
[2023-09-15] MEDS: cloNIDine HCL 0.1 MG TABLET PO PRN (18:43)
[2023-09-15] MEDS ORDERED: VANCOMYCIN/WATER FOR INJ (PEG) 1,000 MG/200 ML BAG IVPB SCH (20:00)
[2023-09-16] MEDS: VANCOMYCIN/WATER FOR INJ (PEG) 1,000 MG/200 ML BAG IVPB SCH (03:18)
[2023-09-16] MEDS: methaDONE HCL 10 MG TABLET PO ONE (10:06)
[2023-09-16] MEDS: chlordiazePOXIDE HCL 25 MG CAPSULE PO PRN (18:59)
[2023-09-17] MEDS: chlordiazePOXIDE HCL 25 MG CAPSULE PO SCH (06:30)
[2023-09-17] MEDS: methaDONE HCL 10 MG TABLET PO ONE (10:19)
[2023-09-17] MEDS ORDERED: TRIMETHOBENZAMIDE HCL 200MG/2ML INJ IM PRN (13:56)
[2023-09-17 14:47] LABS: POTASSIUM 3.8 mmol/L (3.5-5.1)
[2023-09-17 14:51] LABS: CALCIUM 8.4 mg/dL (8.5-10.1)
[2023-09-17 14:52] LABS: BLOOD UREA NITROGEN 3.3 mg/dL (7-18)
[2023-09-17 14:54] LABS: CREATININE 0.7 mg/dL (0.55-1.3)
[2023-09-17 14:56] LABS: BILIRUBIN,TOTAL 0.3 mg/dL (0.2-1); TOT PROT 8.2 g/dl (6.4-8.2)
[2023-09-17] MEDS: FERROUS SO4 325 MG TABLET (FP) PO SCH (21:44)
[2023-09-18] MEDS ORDERED: chlordiazePOXIDE HCL 10 MG CAPSULE PO PRN
[2023-09-18] MEDS: hydrOXYzine PAMOATE 25 MG CAPSULE (FP) PO ONE (02:39)
[2023-09-18] MEDS: MELATONIN 5 MG TABLETS PO PRN (02:39)
[2023-09-18] MEDS: chlordiazePOXIDE HCL 10 MG CAPSULE PO SCH (04:48)
[2023-09-18 09:53] VITALS: BP 94/65; PULSE 60; RESP 16; TEMP 97.7
[2023-09-18] MEDS: SULFAMETHOXAZOLE/TRIMETHOPRIM 800MG/160MG D.S. TABLET PO SCH (14:12)
[2023-09-19] MEDS ORDERED: chlordiazePOXIDE HCL 10 MG CAPSULE PO SCH (05:00)
[2023-09-20] MEDS ORDERED: chlordiazePOXIDE HCL 10 MG CAPSULE PO ONE (05:00)
== END 2023-09-18 14:18 | disposition left against medical advice (07) | DRG 383 ==
LOC: JER 14:29 → JERBED 20:06 → J8W 09-15 15:20
PROVIDERS: ADMIT Internal Medicine; ATTEND Nurse Practitioner Acute Care
PROC: HZ2ZZZZ Detoxification Services for Substance Abuse Treatment (ICD-10-PCS; principal; 2023-09-14)
DX: L03.115 Cellulitis of right lower limb (principal); L97.919 Non-pressure chronic ulcer of unspecified part of right lower leg with unspecified severity; D50.9 Iron deficiency anemia, unspecified; F10.239 Alcohol dependence with withdrawal, unspecified; F19.10 Other psychoactive substance abuse, uncomplicated; N91.2 Amenorrhea, unspecified; L97.929 Non-pressure chronic ulcer of unspecified part of left lower leg with unspecified severity; L03.116 Cellulitis of left lower limb
CPT/HCPCS: 36415; 71046-TC-FY; 80053; 80307; 81003; 82728; 82962; 83540; 83550; 83605; 84443; 84484; 84703; 85025; 85651; 86140; 86780; 87040; 87070; 87077; 87186; 87205; 87389; 87491; 87591; 87661; 93005; 93010; 99285-25; G0480

== ENCOUNTER 2023-10-10 08:06 | Inpatient (IN) | payer OTHER ==
[2023-10-10 08:19] VITALS: BMI 23.0
[2023-10-10 10:28] LABS: VENOUS BASE EXCESS -0.6 mmol/L (-2-2); VENOUS O2 SATURATION 31.5 % (70-80); VENOUS PCO2 54.9 mmHg (38-52); VENOUS PH 7.301 (7.310-7.410)
[2023-10-10 10:46] LABS: BASO % 0.5 % (0-2.0); EOS % 0.8 % (0-4.5); HEMATOCRIT 31.9 % (32.4-45.2); HEMOGLOBIN 10.1 GM/dL (10.7-15.3); LYMPH % 18.9 % (8-40); MCH 20.1 pg (25.7-33.7); MCHC 31.6 g/dl (32.0-36.0); MEAN CELL VOLUME 63.5 fl (80-96); MONO % 5.1 % (3.8-10.2); NEUT % 74.7 % (42.8-82.8); PLATELET COUNT 281 10^3/uL (134-434); RBC 5.03 M/mm3 (3.60-5.2); RDW 17.6 % (11.6-15.6); WHITE BLOOD COUNT 4.3 K/mm3 (4.0-10.0)
[2023-10-10 10:48] LABS: INR 1.05 (0.83-1.09); PROTHROMBIN TIME (PATIENT) 12.2 SEC (9.7-13.0)
[2023-10-10 10:51] LABS: ACTIVATED PTT 31.4 SECONDS (25.2-36.5)
[2023-10-10] MEDS: diazePAM 5 MG TABLET PO ONE (11:00)
[2023-10-10 11:09] LABS: CHLORIDE 102 mmol/L (98-107); POTASSIUM 4.1 mmol/L (3.5-5.1); SODIUM 136 mmol/L (136-145)
[2023-10-10 11:12] LABS: ALBUMIN 3.7 g/dl (3.4-5.0); ANION GAP 7 mmol/L (4-13); BLOOD UREA NITROGEN 10.6 mg/dL (7-18); CO2 27 mmol/L (21-32); GLUCOSE,RANDOM 121 mg/dL (74-106)
[2023-10-10 11:15] LABS: CREATININE 0.7 mg/dL (0.55-1.3); SGOT/AST 13 U/L (15-37); SGPT/ALT 13 U/L (13-61)
[2023-10-10 11:16] LABS: BILIRUBIN,TOTAL 0.4 mg/dL (0.2-1)
[2023-10-10 11:17] LABS: ALK PHOS 109 U/L (45-117)
[2023-10-10] MEDS ORDERED: diazePAM 5 MG TABLET ONE (11:37)
[2023-10-10] MEDS ORDERED: PIPERACILLIN/TAZOB 3.375 GM 3.375 GM/50 ML BAG IVPB ONE (11:38)
[2023-10-10 11:48] LABS: SYPHILIS W/ RPR CONF NON-REACTIVE (NONREACTIVE)
[2023-10-10] MEDS ORDERED: ACETAMINOPHEN 325 MG TABLET (FP) PO PRN (12:04)
[2023-10-10 12:15] LABS: HIV INTERPRETATION NEGATIVE (NEGATIVE)
[2023-10-10] MEDS: PIPERACILLIN/TAZOB 3.375 GM 3.375 GM in DEXTROSE 5%-WATER - 50 ML IVPB ONE (12:15)
[2023-10-10 12:45] LABS: ANISOCYTOSIS 3+; MACROCYTOSIS 0
[2023-10-10] MEDS: VANCOMYCIN HCL 1,500 MG in DEXTROSE 5%-WATER - 500 ML IVPB ONE (12:58)
[2023-10-10 22:52] VITALS: RESP 18
[2023-10-10] MEDS: LORazepam 2 MG/ML SDV VIAL IVPUSH PRN (22:53)
[2023-10-11] MEDS: chlordiazePOXIDE 5 MG CAPSULE PO SCH (00:55)
[2023-10-11 06:53] VITALS: BP 124/89; PULSE 95; TEMP 98.6
[2023-10-11] MEDS ORDERED: KETOROLAC TROMETHAMINE 15 MG/ML VIAL IVPUSH PRN (07:41)
[2023-10-11] MEDS ORDERED: ACETAMINOPHEN 325 MG TABLET (FP) PO PRN (07:42)
[2023-10-11] MEDS ORDERED: cloNIDine HCL 0.1 MG TABLET PO PRN (08:40)
[2023-10-11] MEDS: ENOXAPARIN NA (PORCINE) 40 MG/0.4 ML DISP.SYRIN SQ SCH (09:26)
[2023-10-11] MEDS: methaDONE HCL 10 MG TABLET PO ONE (09:26)
[2023-10-11] MEDS ORDERED: CEFEPIME HCL 1 GM VIAL (RESTRICTED TO ID) IVPB SCH (10:30)
[2023-10-11] MEDS: VANCOMYCIN/WATER FOR INJ (PEG) 1,000 MG/200 ML BAG IVPB SCH (11:23)
[2023-10-11] MEDS: CEFEPIME 1 GM in DEXTROSE 5%-WATER 100 ML IVPB SCH (11:23)
[2023-10-11] MEDS: cloNIDine HCL 0.1 MG TABLET PO PRN (11:30)
[2023-10-11] MEDS: VANCOMYCIN 1,000 MG in DEXTROSE 5%-WATER - 250 ML IVPB SCH (12:48)
[2023-10-11] MEDS ORDERED: VANCOMYCIN/WATER FOR INJ (PEG) 1,000 MG/200 ML BAG IVPB SCH (13:00)
[2023-10-13] MEDS ORDERED: methaDONE HCL 10 MG TABLET PO ONE (10:00)
[2023-10-15] MEDS ORDERED: methaDONE HCL 10 MG TABLET PO ONE (10:00)
== END 2023-10-11 13:47 | disposition left against medical advice (07) | DRG 383 ==
LOC: JER 08:06 → JERBED 10:05 → J7W 17:57
PROVIDERS: ADMIT Internal Medicine; ATTEND Internal Medicine
DX: L03.116 Cellulitis of left lower limb (principal); L03.115 Cellulitis of right lower limb; F11.23 Opioid dependence with withdrawal; F41.9 Anxiety disorder, unspecified; F19.90 Other psychoactive substance use, unspecified, uncomplicated; G89.29 Other chronic pain; L97.828 Non-pressure chronic ulcer of other part of left lower leg with other specified severity; L97.818 Non-pressure chronic ulcer of other part of right lower leg with other specified severity; L08.9 Local infection of the skin and subcutaneous tissue, unspecified; B18.2 Chronic viral hepatitis C
CPT/HCPCS: 36415; 73590-TC-LT-FY; 73590-TC-RT-FY; 80053; 80307; 82803; 83605; 84703; 85025; 85610; 85651; 85730; 86704; 86780; 86803; 86850; 86900; 86901; 87040; 87340; 87389; 87491; 87517; 87522; 87591; 93005; 93010; 99285-25

== ENCOUNTER 2024-01-02 16:48 | Inpatient (IN) | payer OTHER ==
[2024-01-02] MEDS ORDERED: ACETAMINOPHEN INJECTION 100 ML IVPB ONE (18:29)
[2024-01-02] MEDS ORDERED: CEFEPIME 1 GM/100 ML BAG IVPB ONE (18:30)
[2024-01-02] MEDS ORDERED: VANCOMYCIN 1 GRAM (PRE-DOCKED) 1,000 MG/250 ML BAG IVPB ONE (18:30)
[2024-01-02 19:24] LABS: EPI CELLS >36 /uL (0-25.1); HYALINE CASTS 1 /uL (0-3.1); PH,URINE 5.5 (5.0-8.0); URINE APPEARANCE CLEAR; URINE BACTERIA 102 /uL (0-1359); URINE BILIRUBIN NEGATIVE (NEGATIVE); URINE COLOR YELLOW; URINE GLUCOSE (UA) NEGATIVE (NEGATIVE); URINE KETONE NEGATIVE (NEGATIVE); URINE LEUK ESTERASE 1+ (NEGATIVE); URINE NITRITE NEGATIVE (NEGATIVE); URINE PROTEIN NEGATIVE (NEGATIVE); URINE RBC 6 /uL (0-23.9); URINE WBC 69 /uL (0-25.8)
[2024-01-02 19:33] LABS: BASO % 0.5 % (0-2.0); EOS % 2.2 % (0-4.5); HEMATOCRIT 29.3 % (32.4-45.2); LYMPH % 24.3 % (8-40); MCHC 30.6 g/dl (32.0-36.0); MEAN CELL VOLUME 62.6 fl (80-96); MEAN PLT VOLUME 7.4 fl (7.5-11.1); MONO % 10.3 % (3.8-10.2); NEUT % 62.7 % (42.8-82.8); PLATELET COUNT 356 10^3/uL (134-434); RBC 4.69 M/mm3 (3.60-5.2); RDW 16.4 % (11.6-15.6); WHITE BLOOD COUNT 6.4 K/mm3 (4.0-10.0)
[2024-01-02 19:36] LABS: MCH 19.2 pg (25.7-33.7)
[2024-01-02] MEDS: CEFEPIME HCL 1 GM VIAL (RESTRICTED TO ID) IVPB ONE (19:37)
[2024-01-02] MEDS: ACETAMINOPHEN 1000 MG/100 ML BAG IVPB ONE (19:37)
[2024-01-02 19:50] LABS: ALBUMIN 3.5 g/dl (3.4-5.0)
[2024-01-02 19:51] LABS: BLOOD UREA NITROGEN 9.9 mg/dL (7-18)
[2024-01-02 19:53] LABS: CREATININE 0.8 mg/dL (0.55-1.3)
[2024-01-02 19:55] LABS: BILIRUBIN,TOTAL 0.4 mg/dL (0.2-1); TOT PROT 8.8 g/dl (6.4-8.2)
[2024-01-02] MEDS: VANCOMYCIN 1,000 MG in DEXTROSE 5%-WATER - 250 ML IVPB ONE (20:07)
[2024-01-02 20:42] LABS: ANISOCYTOSIS 2+; MACROCYTOSIS 1+; OVALOCYTE 1+
[2024-01-02] MEDS: FOLIC ACID INJECTION - 1 MG, THIAMINE HCL 100 MG, MULTIVIT INJECTION ADULT 10 ML in SOD... IVPB ONE (23:19)
[2024-01-03] MEDS: ACETAMINOPHEN 325 MG TABLET (FP) PO PRN (01:52)
[2024-01-03] MEDS: LORazepam 2 MG/ML SDV VIAL IVPUSH PRN (07:20)
[2024-01-03] MEDS: VANCOMYCIN/WATER FOR INJ (PEG) 1,000 MG/200 ML BAG IVPB SCH (08:44)
[2024-01-03 08:50] VITALS: BMI 22.6
[2024-01-03 08:55] LABS: SYPHILIS W/ RPR CONF NON-REACTIVE (NONREACTIVE)
[2024-01-03 09:24] LABS: HIV INTERPRETATION NEGATIVE (NEGATIVE)
[2024-01-03] MEDS ORDERED: CEFEPIME HCL 2 GM VIAL (RESTRICTED TO ID) IVPB SCH (10:00)
[2024-01-03] MEDS: FOLIC ACID 1 MG TABLET (FP) PO SCH (10:57)
[2024-01-03] MEDS: THIAMINE 100 MG TABLET PO SCH (10:57)
[2024-01-03] MEDS: methaDONE HCL 10 MG TABLET PO ONE (11:01)
[2024-01-03] MEDS: ENOXAPARIN NA (PORCINE) 40 MG/0.4 ML DISP.SYRIN SQ SCH (11:02)
[2024-01-03] MEDS: CEFEPIME 2 GM in DEXTROSE 5%-WATER 100 ML IVPB SCH (11:02)
[2024-01-03 21:14] LABS: PHENCYCLIDINE,URINE NEGATIVE (NEGATIVE); URINE AMPHETAMINES NEGATIVE (NEGATIVE); URINE BENZODIAZEPINES NEGATIVE (NEGATIVE)
[2024-01-03 21:23] LABS: URINE BARBITURATES NEGATIVE (NEGATIVE)
[2024-01-03 21:33] LABS: COCAINE, UR POSITIVE (NEGATIVE); METHADONE, UR POSITIVE (NEGATIVE); OPIATES, URI POSITIVE (NEGATIVE)
[2024-01-04] MEDS: VANCOMYCIN/WATER FOR INJ (PEG) 1,000 MG/200 ML BAG IVPB SCH (09:10)
[2024-01-04] MEDS: CEFEPIME 2 GM in DEXTROSE 5%-WATER 100 ML IVPB SCH (09:11)
[2024-01-04] MEDS: methaDONE HCL 10 MG TABLET PO ONE (09:12)
[2024-01-04] MEDS ORDERED: LOPERAMIDE HCL 2 MG CAPSULE PO PRN (10:44)
[2024-01-04] MEDS ORDERED: ONDANSETRON *ODT* 4 MG TABLET SL PRN (10:44)
[2024-01-04] MEDS ORDERED: MAGNESIUM HYDROX 2400MG/30ML ORAL SUSPENSION 30 ML CUP PO PRN (10:44)
[2024-01-04] MEDS ORDERED: BISMUTH SUBSALICYLATE 524 MG/30 ML PO PRN (10:44)
[2024-01-04] MEDS ORDERED: DICYCLOMINE HCL 10 MG CAPSULE PO PRN (10:44)
[2024-01-04] MEDS ORDERED: IBUPROFEN 400 MG TABLET (FP) PO PRN (10:44)
[2024-01-04] MEDS ORDERED: MAG HYDROX/AL HYDROX/SIMETH 30 ML UNIT-DOSE CUP PO PRN (10:44)
[2024-01-04] MEDS ORDERED: BENZONATATE 200 MG CAPSULE PO PRN (10:44)
[2024-01-04] MEDS ORDERED: BENZOCAINE/MENTHOL (CHLORASEPTIC ) LOZENGE MM PRN (10:44)
[2024-01-04] MEDS ORDERED: POLYETHYLENE GLYCOL (HEALTHYLAX) 3350 17 GM PACKET PO PRN (10:44)
[2024-01-04] MEDS ORDERED: guaiFENesin 600 MG TABLET.ER (FP) PO PRN (10:44)
[2024-01-04] MEDS ORDERED: METHOCARBAMOL 500 MG TABLET PO PRN (10:44)
[2024-01-04] MEDS: hydrOXYzine PAMOATE 25 MG CAPSULE (FP) PO PRN (17:19)
[2024-01-04] MEDS: IBUPROFEN 600 MG TABLET (FP) PO PRN (20:19)
[2024-01-04] MEDS: DOXYCYCLINE INJECTION 100 MG in DEXTROSE 5%-WATER 100 ML IVPB ONE (20:38)
[2024-01-04] MEDS: cloNIDine HCL 0.1 MG TABLET PO PRN (20:47)
[2024-01-04] MEDS: MELATONIN 5 MG TABLETS PO SCH (22:03)
[2024-01-04 23:10] VITALS: RESP 18
[2024-01-05] MEDS ORDERED: DOXYCYCLINE INJECTION 100 MG in DEXTROSE 5%-WATER 100 ML IVPB SCH (10:00)
[2024-01-05] MEDS ORDERED: diazePAM CARPU-JECT 10 MG/2 ML DISP.SYRIN IVPUSH ONE ×2 (10:04→10:11)
[2024-01-05] MEDS ORDERED: diazePAM 2 MG TABLET PO PRN (10:05)
[2024-01-05] MEDS: PRENATAL VITAMINS W/ FOLIC ACID TABLET (FP) PO SCH (10:09)
[2024-01-05 11:36] VITALS: BP 121/86; PULSE 88; TEMP 98.4
[2024-01-06] MEDS ORDERED: methaDONE HCL 10 MG TABLET PO ONE (10:00)
== END 2024-01-05 11:13 | disposition left against medical advice (07) | DRG 383 ==
LOC: JER 16:48 → JERBED 21:19 → J8W 01-03 01:22
PROVIDERS: ADMIT Internal Medicine; ATTEND Nurse Practitioner Family
DX: L03.116 Cellulitis of left lower limb (principal); L97.929 Non-pressure chronic ulcer of unspecified part of left lower leg with unspecified severity; F14.20 Cocaine dependence, uncomplicated; F11.20 Opioid dependence, uncomplicated; L97.919 Non-pressure chronic ulcer of unspecified part of right lower leg with unspecified severity; L03.115 Cellulitis of right lower limb; D50.9 Iron deficiency anemia, unspecified; F10.20 Alcohol dependence, uncomplicated
CPT/HCPCS: 36415; 80053; 80307; 81003; 85025; 86704; 86780; 86803; 87040; 87086; 87340; 87389; 87491; 87517; 87522; 87591; 87661; 93005; 93010; 99285-25; J0131

== ENCOUNTER 2024-03-03 13:03 | Emergency (ER) | payer OTHER ==
[2024-03-03 13:14] VITALS: BP 134/96; PULSE 107; RESP 19; TEMP 98.2; BMI 22.3
== END 2024-03-03 13:45 | disposition left against medical advice (07) ==
LOC: JER 13:03
DX: Z53.21 Procedure and treatment not carried out due to patient leaving prior to being seen by health care provider (principal)
CPT/HCPCS: 99281-25

== ENCOUNTER 2024-03-26 19:26 | Inpatient (IN) | payer OTHER ==
[2024-03-26 19:35] VITALS: BMI 24.5
[2024-03-26 22:00] LABS: HEMATOCRIT 29.6 % (32.4-45.2); MCH 19.6 pg (25.7-33.7); MCHC 30.5 g/dl (32.0-36.0); MEAN CELL VOLUME 64.3 fl (80-96); MEAN PLT VOLUME 7.8 fl (7.5-11.1); PLATELET COUNT 302 10^3/uL (134-434); RBC 4.59 M/mm3 (3.60-5.2); RDW 17.4 % (11.6-15.6); WHITE BLOOD COUNT 5.9 K/mm3 (4.0-10.0)
[2024-03-26] MEDS ORDERED: VANCOMYCIN/WATER 1250 MG 1,250 MG/250 ML BAG IVPB ONE (22:38)
[2024-03-26] MEDS ORDERED: PIPERACILLIN/TAZOB 3.375 GM 3.375 GM/50 ML BAG IVPB ONE (22:38)
[2024-03-26 22:41] LABS: ERYTHROCYTE SEDIMENTATION RATE 34 mm/hr (0-20)
[2024-03-26] MEDS: PIPERACILLIN/TAZOB 3.375 GM 3.375 GM in DEXTROSE 5%-WATER - 50 ML IVPB ONE (22:49)
[2024-03-26 22:58] LABS: ANISOCYTOSIS 0; MACROCYTOSIS 0; OVALOCYTE 1+
[2024-03-26 23:04] LABS: POTASSIUM 3.5 mmol/L (3.5-5.1)
[2024-03-26 23:07] LABS: ALBUMIN 3.5 g/dl (3.4-5.0)
[2024-03-26 23:10] LABS: CREATININE 0.6 mg/dL (0.55-1.3)
[2024-03-26 23:11] LABS: BILIRUBIN,TOTAL 0.3 mg/dL (0.2-1); TOT PROT 8.2 g/dl (6.4-8.2)
[2024-03-26] MEDS: VANCOMYCIN/WATER 1250 MG 1,250 MG/250 ML BAG IVPB ONE (23:37)
[2024-03-27 00:13] LABS: HIV INTERPRETATION NEGATIVE (NEGATIVE)
[2024-03-27] MEDS ORDERED: chlordiazePOXIDE HCL 25 MG CAPSULE PO PRN (02:47)
[2024-03-27 04:59] VITALS: TEMP 98.2
[2024-03-27] MEDS ORDERED: chlordiazePOXIDE HCL 25 MG CAPSULE ONE ×2 (05:51→10:35)
[2024-03-27] MEDS: chlordiazePOXIDE HCL 25 MG CAPSULE PO SCH (06:01)
[2024-03-27] MEDS ORDERED: PIPERACILLIN/TAZOB 3.375 GM 3.375 GM in DEXTROSE 5%-WATER - 50 ML IVPB SCH (06:45)
[2024-03-27] MEDS ORDERED: VANCOMYCIN/WATER 1250 MG 1,250 MG/250 ML BAG IVPB SCH (07:00)
[2024-03-27] MEDS ORDERED: FOLIC ACID 1 MG TABLET (FP) ONE (08:34)
[2024-03-27] MEDS ORDERED: VANCOMYCIN/WATER 1250 MG 1,250 MG/250 ML BAG IVPB ONE ×2 (08:35→20:53)
[2024-03-27] MEDS ORDERED: PIPERACILLIN/TAZOB 3.375 GM 3.375 GM/50 ML BAG IVPB ONE ×3 (08:35→20:02)
[2024-03-27] MEDS ORDERED: ENOXAPARIN NA (PORCINE) 40 MG/0.4 ML DISP.SYRIN SQ ONE (08:35)
[2024-03-27] MEDS ORDERED: NICOTINE 7 MG/24 HOURS TOPICAL PATCH TD ONE (08:35)
[2024-03-27] MEDS: PIPERACILLIN/TAZOB 3.375 GM 3.375 GM/50 ML BAG IVPB SCH (08:51)
[2024-03-27] MEDS: NICOTINE 7 MG/24 HOURS TOPICAL PATCH TD SCH (08:59)
[2024-03-27] MEDS: ENOXAPARIN NA (PORCINE) 40 MG/0.4 ML DISP.SYRIN SQ SCH (08:59)
[2024-03-27] MEDS: FOLIC ACID 1 MG TABLET (FP) PO SCH (08:59)
[2024-03-27] MEDS: VANCOMYCIN/WATER 1250 MG 1,250 MG/250 ML BAG IVPB SCH (09:28)
[2024-03-27] MEDS ORDERED: FERROUS SO4 325 MG TABLET (FP) ONE (13:06)
[2024-03-27] MEDS: FERROUS SO4 325 MG TABLET (FP) PO SCH (13:11)
[2024-03-27] MEDS ORDERED: methaDONE HCL 10 MG TABLET ONE (13:26)
[2024-03-27] MEDS: methaDONE HCL 10 MG TABLET PO ONE (13:30)
[2024-03-27] MEDS: THIAMINE 100 MG TABLET PO SCH (22:45)
[2024-03-28] MEDS ORDERED: PIPERACILLIN/TAZOB 3.375 GM 3.375 GM/50 ML BAG IVPB ONE (02:55)
[2024-03-28] MEDS ORDERED: cloNIDine HCL 0.1 MG TABLET ONE (03:04)
[2024-03-28] MEDS: cloNIDine HCL 0.1 MG TABLET PO PRN (03:08)
[2024-03-28 03:16] VITALS: RESP 18
[2024-03-28] MEDS ORDERED: chlordiazePOXIDE HCL 25 MG CAPSULE PO SCH (05:00)
[2024-03-28] MEDS ORDERED: chlordiazePOXIDE HCL 10 MG CAPSULE ONE (07:57)
[2024-03-28] MEDS: chlordiazePOXIDE HCL 10 MG CAPSULE PO PRN (07:58)
[2024-03-28] MEDS ORDERED: methaDONE HCL 10 MG TABLET ONE (09:30)
[2024-03-28 09:40] VITALS: BP 107/83; PULSE 83
[2024-03-28] MEDS ORDERED: chlordiazePOXIDE HCL 25 MG CAPSULE PO PRN (12:01)
[2024-03-28] MEDS ORDERED: chlordiazePOXIDE HCL 25 MG CAPSULE ONE (14:18)
[2024-03-28] MEDS: chlordiazePOXIDE HCL 25 MG CAPSULE PO SCH (14:27)
[2024-03-28] MEDS ORDERED: VANCOMYCIN 1 GRAM (PRE-DOCKED) 1,000 MG/250 ML BAG IVPB SCH (16:45)
[2024-03-28] MEDS ORDERED: CEFEPIME HCL 1 GM VIAL (RESTRICTED TO ID) IVPB SCH (16:45)
[2024-03-28] MEDS ORDERED: CEFEPIME 1 GM in DEXTROSE 5%-WATER 100 ML IVPB SCH (16:45)
[2024-03-29] MEDS ORDERED: chlordiazePOXIDE HCL 10 MG CAPSULE PO PRN ×2 (05:00)
[2024-03-29] MEDS ORDERED: chlordiazePOXIDE HCL 10 MG CAPSULE PO SCH ×2 (05:00)
[2024-03-29] MEDS ORDERED: methaDONE HCL 10 MG TABLET PO ONE (10:00)
[2024-03-30] MEDS ORDERED: chlordiazePOXIDE HCL 10 MG CAPSULE PO SCH ×2 (05:00)
[2024-03-31] MEDS ORDERED: chlordiazePOXIDE HCL 10 MG CAPSULE PO ONE ×2 (05:00)
[2024-03-31] MEDS ORDERED: methaDONE HCL 10 MG TABLET PO ONE (10:00)
== END 2024-03-28 14:30 | disposition left against medical advice (07) | DRG 383 ==
LOC: JER 19:26 → JERBED 22:42
PROVIDERS: ADMIT Internal Medicine; ATTEND Nurse Practitioner Family
PROC: HZ2ZZZZ Detoxification Services for Substance Abuse Treatment (ICD-10-PCS; principal; 2024-03-26)
DX: L03.115 Cellulitis of right lower limb (principal); E46 Unspecified protein-calorie malnutrition; D50.9 Iron deficiency anemia, unspecified; F19.10 Other psychoactive substance abuse, uncomplicated; L08.9 Local infection of the skin and subcutaneous tissue, unspecified; S81.801A Unspecified open wound, right lower leg, initial encounter; S81.802A Unspecified open wound, left lower leg, initial encounter; L03.116 Cellulitis of left lower limb; X58.XXXA Exposure to other specified factors, initial encounter; Y93.9 Activity, unspecified; Y92.89 Other specified places as the place of occurrence of the external cause; Y99.9 Unspecified external cause status; Z68.24 Body mass index [BMI] 24.0-24.9, adult
CPT/HCPCS: 36415; 73590-TC-LT-FY; 73590-TC-RT-FY; 73610-TC-LT-FY; 73610-TC-RT-FY; 73630-TC-LT; 73630-TC-RT-FY; 80053; 85027; 85651; 86140; 86803; 87040; 87070; 87076; 87077; 87186; 87205; 87389; 87522; 93005; 93010; 99285-25